=== PATIENT | female | born 1970 | race Caucasian/White ===

== ENCOUNTER 2020-03-02 18:03 | Emergency (ER) | payer OTHER, BC ==
[~2020-03-02] VITALS: Ht 167.6 cm; Wt 68.9 kg
[~2020-03-02 18:03] MED LIST: ALPR1TAB2 PO; ASPI-1153 PO; BIRTH CONTROL PILLS; DULO60CA41 PO; ESZO3TAB27 PO
--- NOTE | 2020-03-02 18:17 | NUR ---
Patient to ER bed 07 to gown for evaluation. Side rails up.
[2020-03-02 18:20] VITALS: BP_SYST 143
--- NOTE | 2020-03-02 18:23 | NUR ---
Pt came to ER after falling in shower, c/o R ft pain 5/10 and swelling. Resting in [facility], pt ambulatory, AO4, awaiting MD.
--- NOTE | 2020-03-02 18:26 | NUR ---
STEPHANY Holland at bedside examining patient.
[2020-03-02] MEDS ORDERED: IBUPROFEN 600 MG TABLET PO ONE (18:30)
--- NOTE | 2020-03-02 18:53 | NUR ---
radiology at bedside for xray
--- NOTE | 2020-03-02 19:06 | NUR ---
RECEIVED REPORT FROM KALPANA RUIZ FOR CONTINUATION OF CARE.
--- NOTE | 2020-03-02 19:20 | NUR ---
mile wrap applied to patients right foot per MD order.
[2020-03-02 19:26] VITALS: BP_SYST 114
--- NOTE | 2020-03-02 19:26 | NUR ---
Patient given written and verbal discharge instructions and verbalizes understanding. ER MD discussed with patient the results and treatment provided. Patient in stable condition. ID arm band removed. Rx of IBUPROFEN given. Patient educated on pain management and to follow up with PMD. Pain Scale 4/10. Opportunity for questions provided and answered. Medication side effect fact sheet provided.
== END 2020-03-02 19:26 | disposition home or self-care (01) ==
LOC: SED 18:03
DX: S93.601A Unspecified sprain of right foot, initial encounter (principal); S90.31XA Contusion of right foot, initial encounter; K21.9 Gastro-esophageal reflux disease without esophagitis; E11.9 Type 2 diabetes mellitus without complications; W22.8XXA Striking against or struck by other objects, initial encounter; Y93.89 Activity, other specified; Y92.89 Other specified places as the place of occurrence of the external cause; Y99.8 Other external cause status
CPT/HCPCS: 99283

== ENCOUNTER 2021-08-04 23:56 | Emergency (ER) | payer OTHER, BC ==
[~2021-08-04] VITALS: Ht 165.1 cm; Wt 74.4 kg
[~2021-08-04 23:56] MED LIST changes: -ASPI-1153 PO; +ASPI-1393 PO
[2021-08-05] VITALS: BP_SYST 116
--- NOTE | 2021-08-05 00:14 | NUR ---
[facility] Side rails up. Report given to Linda ACUNA.
--- NOTE | 2021-08-05 00:28 | NUR ---
Assumed total care of patient. Patient AAo x4 from home c/o cat bite to right thumb/wrist area. No bleeding or swelling to area. Patient reports pain in upper arm shooting from bite area, rates 7/10. Patient recently bit by cat on toe and placed on "heavy" antibiotics and diagnosed with colitis. Patient VSS, breathing even and unlabored, no signs of acute distress noted. Will continue to monitor.
--- NOTE | 2021-08-05 00:41 | NUR ---
ER Dr. Brand at bedside examining patient.
[2021-08-05] MEDS ORDERED: AMOXICILLIN/CLAVULANATE POTASSIUM 875 MG TABLET PO ONE (01:00)
[2021-08-05] MEDS ORDERED: KETOROLAC TROMETHAMINE 60 MG/2 ML VIAL IM ONE (01:00)
--- NOTE | 2021-08-05 01:30 | NUR ---
Patient reports pain decreased to a 5 out of 10. MD aware.
[2021-08-05] MEDS ORDERED: AMOX-426 PO (02:04)
[2021-08-05] MEDS ORDERED: L.RH1CAP PO (02:04)
[2021-08-05 02:09] VITALS: BP_SYST 125
--- NOTE | 2021-08-05 02:09 | NUR ---
Patient given written and verbal discharge instructions and verbalizes understanding. ER MD discussed with patient the results and treatment provided. Patient in stable condition. ID arm band removed. NO IV Rx of augmentin and probiotic given. Patient educated on pain management and to follow up with PMD. Pain Scale 0/10. Opportunity for questions provided and answered. Medication side effect fact sheet provided.
== END 2021-08-05 02:09 | disposition home or self-care (01) ==
LOC: SED 23:56
DX: S61.551A Open bite of right wrist, initial encounter (principal); K21.9 Gastro-esophageal reflux disease without esophagitis; E11.9 Type 2 diabetes mellitus without complications; Z88.2 Allergy status to sulfonamides; Z79.899 Other long term (current) drug therapy; W55.01XA Bitten by cat, initial encounter; Y93.89 Activity, other specified; Y92.89 Other specified places as the place of occurrence of the external cause; Y99.8 Other external cause status
CPT/HCPCS: 96372; 99283; J1885